=== PATIENT | male | born 1960 | race Caucasian/White ===

== ENCOUNTER 2025-01-28 04:49 | Inpatient (IN) | payer MEDICAID ==
[~2025-01-28] VITALS: Ht 167.6 cm; Wt 88.9 kg
[2025-01-28 04:58] VITALS: O2SAT 98
[2025-01-28 05:34] LABS: BASOPHILS % 1.0 % (0.0-2.0); EOSINOPHILS % 0.9 % (0.0-5.0); HEMATOCRIT. 48.8 % (42.0-52.0); HEMOGLOBIN. 16.0 g/dL (14.0-18.0); LYMPHOCYTES % 21.3 % (20.0-50.0); MEAN PLATELET VOLUME 8.0 fl (7.4-10.4); MONOCYTES % 8.5 % (2.0-8.0); NEUTROPHILS % 68.3 % (40.0-76.0); PLATELET 186 x1000/uL (130-400); RED BLOOD CELL COUNT 5.29 mill/uL (4.7-6.1); RED CELL DISTRIBUTION WIDTH 13.9 % (11.6-14.6)
[2025-01-28 05:47] LABS: CREATININE 1.3 mg/dL (0.6-1.3)
[2025-01-28 05:48] LABS: UREA NITROGEN BLOOD 15 mg/dL (9-23)
[2025-01-28 05:49] LABS: ASPARTATE AMINOTRANSFERASE 26 IU/L (<34)
[2025-01-28 05:50] LABS: BILIRUBIN DIRECT 0.3 mg/dL (<=3.0); BILIRUBIN TOTAL 0.9 mg/dL (0.1-1.0); PROTEIN TOTAL 6.9 g/dL (6.0-8.3)
[2025-01-28] MEDS: MORPHINE SULFATE 4 MG/ML INJ (FOR IV/IM USE) IV ONE (06:35)
[2025-01-28 06:48] LABS: CLARITY URINE CLEAR (CLEAR); COLOR URINE YELLOW (YELLOW); GLUCOSE URINE 3+ (NEGATIVE); KETONES URINE NEGATIVE (NEGATIVE); LEUKOCYTE ESTERASE URINE NEGATIVE (NEGATIVE); NITRITE URINE NEGATIVE (NEGATIVE); OCCULT BLOOD URINE 2+ (NEGATIVE); PH URINE 5.0 (4.5-8.0); PROTEIN URINE 1+ (NEGATIVE); SPECIFIC GRAVITY URINE 1.016 (1.005-1.030); UROBILINOGEN URINE 0.2 E.U./dL (0.2-1.0)
[2025-01-28 07:15] LABS: BACTERIA URINE TRACE; SQUAMOUS EPITHELIAL CELL URINE RARE /lpf (RARE/1+); WBC URINE 0-2 /hpf (0-2)
[2025-01-28] MEDS ORDERED: MORPHINE SULFATE 2 MG/ML INJ (NOT FOR IM USE) IV PRN (09:00)
[2025-01-28] MEDS ORDERED: IPRATROPIUM/ALBUTEROL 0.5-3(2.5)MG/3ML NEB HHN PRN (09:00)
[2025-01-28] MEDS ORDERED: DOCUSATE SODIUM 100MG CAPSULE PO PRN (09:00)
[2025-01-28] MEDS ORDERED: MAGNESIUM/ALUMINUM HYDROXIDE/SIMETHICONE 30ML UDC PO PRN (09:00)
[2025-01-28] MEDS ORDERED: GUAIFENESIN 200MG/10ML SUGAR FREE UDC PO PRN (09:00)
[2025-01-28] MEDS ORDERED: DEXTROSE 50% WATER 50ML SYRINGE IV PRN (09:00)
[2025-01-28] MEDS ORDERED: ONDANSETRON HCL 4MG/2ML INJ IV PRN (09:00)
[2025-01-28] MEDS ORDERED: NALOXONE HCL 0.4MG/ML VIAL IV PRN (09:30)
[2025-01-28] MEDS: INSULIN LISPRO 100 UNITS/ML SUBCUT SCH (09:30)
[2025-01-28] MEDS: BLOOD SUGAR DIAGNOSTIC STRIP TEST SCH (09:30)
[2025-01-28] MEDS: LISINOPRIL 10MG TABLET PO SCH (09:52)
[2025-01-28] MEDS: MORPHINE SULFATE 4 MG/ML INJ (FOR IV/IM USE) IV PRN (09:52)
[2025-01-28 10:00] VITALS: BP 148/72; PULSE 64; RESP 16; TEMP 36.418
[2025-01-28 12:00] VITALS: BP 148/72; PULSE 64; RESP 16; TEMP 36.3; O2SAT 98
[2025-01-28] MEDS: DEXT 5%/LACTATED RINGERS 1,000 ML IV SCH (12:17)
[2025-01-28 12:32] LABS: LACTATE DEHYDROGENASE 343 IU/L (120-246)
[2025-01-28 20:00] VITALS: BP 178/87; PULSE 84; RESP 20; TEMP 36.5; O2SAT 96
[2025-01-28] MEDS: ATORVASTATIN CALCIUM 20MG TABLET PO SCH (21:02)
[2025-01-28] MEDS: CLONIDINE 0.1MG TABLET PO PRN (21:16)
[2025-01-29] VITALS: BP 138/96; PULSE 91; RESP 20; TEMP 36.8; O2SAT 95
[2025-01-29] MEDS: INSULIN LISPRO 100 UNITS/ML SUBCUT SCH ×2 (00:11→18:12)
[2025-01-29 04:00] VITALS: BP 122/92; PULSE 114; RESP 20; TEMP 37.7; O2SAT 93
[2025-01-29 06:16] LABS: CREATININE 1.6 mg/dL (0.6-1.3); TRIGLYCERIDE 73.0 mg/dL (0-150); UREA NITROGEN BLOOD 27.0 mg/dL (9-23)
[2025-01-29 06:17] LABS: HEMATOCRIT. 53.5 % (42.0-52.0); HEMOGLOBIN. 17.6 g/dL (14.0-18.0); LDL CHOLESTEROL 68.0 mg/dL (5-100); MEAN PLATELET VOLUME 8.5 fl (7.4-10.4); PLATELET 135 x1000/uL (130-400); RED BLOOD CELL COUNT 5.80 mill/uL (4.7-6.1); RED CELL DISTRIBUTION WIDTH 14.2 % (11.6-14.6)
[2025-01-29 06:18] LABS: T4 FREE 1.09 ng/dL (0.89-1.76)
[2025-01-29 08:00] VITALS: BP 130/99; PULSE 99; RESP 18; TEMP 36.4; O2SAT 99
[2025-01-29] MEDS: PANTOPRAZOLE SODIUM 40 MG/VIAL IV SCH (08:32)
[2025-01-29 09:52] LABS: BAND% 28.0 % (1.0-6.0); LYMPHOCYTES % MANUAL 11.0 % (20.0-50.0); MONOCYTES % MANUAL 7.0 % (2.0-8.0); NEUTROPHILS % MANUAL 54.0 % (45.0-75.0); PLATELET ESTIMATE NORMAL
[2025-01-29 12:00] VITALS: BP 132/92; PULSE 99; RESP 20; TEMP 36.5; O2SAT 96
[2025-01-29] MEDS: ENOXAPARIN 40MG/0.4ML SYR SUBCUT SCH (14:53)
[2025-01-29 16:00] VITALS: BP 132/100; PULSE 100; RESP 20; TEMP 37.5; O2SAT 98
[2025-01-29] MEDS ORDERED: CEFTRIAXONE 1GM/50ML 50 ML IV SCH (18:00)
[2025-01-29] MEDS: CEFTRIAXONE 1GM/50ML 50 ML IV SCH (18:11)
[2025-01-29] MEDS: METRONIDAZOLE 500 MG PREMIX 100 ML IV SCH (22:54)
[2025-01-29] MEDS: INSULIN GLARGINE 100 UNITS/ML SUBCUT SCH (22:55)
[2025-01-30] VITALS: BP 110/78; PULSE 107; RESP 18; TEMP 36.7; O2SAT 99
[2025-01-30 04:00] VITALS: BP 124/89; PULSE 101; RESP 16; TEMP 36.4; O2SAT 100
[2025-01-30 08:00] VITALS: BP 134/93; PULSE 96; RESP 18; TEMP 36.5; O2SAT 97
[2025-01-30] MEDS: LACTATED RINGERS 1,000 ML IV SCH (09:35)
[2025-01-30 11:58] LABS: HEMATOCRIT. 49.7 % (42.0-52.0); HEMOGLOBIN. 16.1 g/dL (14.0-18.0); MEAN PLATELET VOLUME 8.8 fl (7.4-10.4); PLATELET 118 x1000/uL (130-400); RED BLOOD CELL COUNT 5.34 mill/uL (4.7-6.1); RED CELL DISTRIBUTION WIDTH 14.6 % (11.6-14.6)
[2025-01-30 12:15] LABS: CREATININE 1.7 mg/dL (0.6-1.3)
[2025-01-30 12:16] LABS: UREA NITROGEN BLOOD 39 mg/dL (9-23)
[2025-01-30 12:17] LABS: ASPARTATE AMINOTRANSFERASE 83 IU/L (<34); BILIRUBIN DIRECT 0.7 mg/dL (<=3.0); PHOSPHORUS 2.7 mg/dL (2.5-4.9); PROTEIN TOTAL 5.9 g/dL (6.0-8.3)
[2025-01-30 12:18] LABS: BILIRUBIN TOTAL 2.1 mg/dL (0.1-1.0)
[2025-01-30 16:00] VITALS: BP 132/88; PULSE 107; RESP 17; TEMP 36.7; O2SAT 98
[2025-01-30] MEDS: INSULIN LISPRO 100 UNITS/ML SUBCUT SCH (19:21)
[2025-01-30 20:00] VITALS: BP 124/79; PULSE 102; RESP 19; TEMP 36.2; O2SAT 100
[2025-01-30 21:54] LABS: LYMPHOCYTES % MANUAL 7.0 % (20.0-50.0); MONOCYTES % MANUAL 6.0 % (2.0-8.0); NEUTROPHILS % MANUAL 87.0 % (45.0-75.0)
[2025-01-30 21:55] LABS: PLATELET ESTIMATE NORMAL
[2025-01-31] VITALS: BP 137/85; PULSE 99; RESP 20; TEMP 36.5; O2SAT 98
[2025-01-31 04:00] VITALS: BP 135/92; PULSE 102; RESP 18; TEMP 36.1; O2SAT 97
[2025-01-31 07:21] LABS: HEMATOCRIT. 43.5 % (42.0-52.0); HEMOGLOBIN. 14.5 g/dL (14.0-18.0); MEAN PLATELET VOLUME 9.0 fl (7.4-10.4); PLATELET 110 x1000/uL (130-400); RED BLOOD CELL COUNT 4.69 mill/uL (4.7-6.1); RED CELL DISTRIBUTION WIDTH 13.9 % (11.6-14.6)
[2025-01-31 07:22] LABS: CREATININE 1.3 mg/dL (0.6-1.3)
[2025-01-31 07:23] LABS: UREA NITROGEN BLOOD 31 mg/dL (9-23)
[2025-01-31 07:24] LABS: ASPARTATE AMINOTRANSFERASE 63 IU/L (<34)
[2025-01-31 07:25] LABS: BILIRUBIN DIRECT 1.0 mg/dL (<=3.0); BILIRUBIN TOTAL 2.7 mg/dL (0.1-1.0); PHOSPHORUS 2.2 mg/dL (2.5-4.9); PROTEIN TOTAL 5.8 g/dL (6.0-8.3)
[2025-01-31 08:00] VITALS: BP 135/96; PULSE 106; RESP 14; TEMP 36.6; O2SAT 96
[2025-01-31] MEDS: AMLODIPINE 5MG TABLET PO SCH (08:51)
[2025-01-31] MEDS: INSULIN LISPRO 100 UNITS/ML SUBCUT SCH (11:51)
[2025-01-31] MEDS: SODIUM PHOSPHATE 20 MMOL in DEXT 5% WATER 243.3333 ML IV SCH (11:53)
[2025-01-31 11:54] LABS: BAND% 14.0 % (1.0-6.0); LYMPHOCYTES % MANUAL 12.0 % (20.0-50.0); MONOCYTES % MANUAL 5.0 % (2.0-8.0); NEUTROPHILS % MANUAL 69.0 % (45.0-75.0); PLATELET ESTIMATE SLIGHTLY DECREASED
[2025-01-31 12:00] VITALS: BP 123/77; PULSE 92; RESP 18; TEMP 37.5; O2SAT 99
[2025-01-31] MEDS: PIPERACILLIN/TAZO 3.375G/50ML 50 ML IV SCH (14:00)
[2025-01-31 16:00] VITALS: BP 124/79; PULSE 89; RESP 15; TEMP 36.6; O2SAT 92
[2025-01-31 17:50] LABS: BG BASE EXCESS -0.6 mmol/L (-2.0-3.0); BG CARBOXYHEMOGLOBIN 2.0 % (0.5-1.5); BG DEOXYHEMOGLOBIN 3.3 % (0.0-5.0); BG FRACTION INSPIRED OXYGEN 21; BG HCO3 ACT 20.8 mmol/L (21.0-28.0); BG METHEMOGLOBIN 0.3 % (0.5-1.5); BG OXYGEN SATURATION 96.6 % (94.0-98.0); BG OXYHEMOGLOBIN 94.4 % (94.0-98.0); BG PCO2 26.5 mmHg (35.0-48.0); BG PH 7.513 (7.350-7.450); BG PO2 74.8 mmHg (83.0-108.0); BG SAMPLE SITE RIGHT RADIAL; BG TOTAL HEMOGLOBIN 14.5 g/dL (13.5-17.5); BG VENT MODE ROOM AIR
[2025-01-31 20:00] VITALS: BP 125/71; PULSE 96; RESP 18; TEMP 37.5; O2SAT 100
[2025-01-31] MEDS: INSULIN GLARGINE 100 UNITS/ML SUBCUT SCH (21:41)
[2025-02-01] VITALS: BP 111/75; PULSE 92; RESP 18; TEMP 36.6; O2SAT 100
[2025-02-01 04:00] VITALS: BP 126/88; PULSE 104; RESP 18; TEMP 36.3; O2SAT 95
[2025-02-01 08:00] VITALS: PULSE 114; RESP 14; TEMP 36.9; O2SAT 91
[2025-02-01 08:20] LABS: UREA NITROGEN BLOOD 29 mg/dL (9-23)
[2025-02-01 08:21] LABS: CREATININE 1.0 mg/dL (0.6-1.3); HEMATOCRIT. 40.8 % (42.0-52.0); HEMOGLOBIN. 13.8 g/dL (14.0-18.0); MEAN PLATELET VOLUME 8.7 fl (7.4-10.4); PLATELET 135 x1000/uL (130-400); RED BLOOD CELL COUNT 4.47 mill/uL (4.7-6.1); RED CELL DISTRIBUTION WIDTH 14.0 % (11.6-14.6)
[2025-02-01 08:23] LABS: ASPARTATE AMINOTRANSFERASE 44 IU/L (<34); BILIRUBIN DIRECT 1.8 mg/dL (<=3.0); BILIRUBIN TOTAL 3.2 mg/dL (0.1-1.0); PHOSPHORUS 1.9 mg/dL (2.5-4.9)
[2025-02-01 08:24] LABS: PROTEIN TOTAL 5.1 g/dL (6.0-8.3)
[2025-02-01] MEDS: FAMOTIDINE 20MG/2ML VIAL IV SCH (08:45)
[2025-02-01 12:00] VITALS: PULSE 103; RESP 14; TEMP 36.7; O2SAT 91
[2025-02-01] MEDS: SODIUM PHOSPHATE 30 MMOL in DEXT 5% WATER 490 ML IV NR (12:02)
[2025-02-01 16:00] VITALS: PULSE 100; RESP 20; TEMP 36.4; O2SAT 92
[2025-02-01 20:00] VITALS: BP 121/76; PULSE 73; RESP 18; TEMP 36.3; O2SAT 94
[2025-02-02] VITALS: BP 119/84; PULSE 102; RESP 19; TEMP 36.3; O2SAT 93
[2025-02-02 04:00] VITALS: BP 131/88; PULSE 100; RESP 16; TEMP 36.2; O2SAT 96
[2025-02-02 04:52] LABS: BAND% 7.0 % (1.0-6.0); LYMPHOCYTES % MANUAL 10.0 % (20.0-50.0); MONOCYTES % MANUAL 10.0 % (2.0-8.0); NEUTROPHILS % MANUAL 73.0 % (45.0-75.0); PLATELET ESTIMATE NORMAL
[2025-02-02 07:21] LABS: HEMATOCRIT. 39.0 % (42.0-52.0); HEMOGLOBIN. 13.1 g/dL (14.0-18.0); MEAN PLATELET VOLUME 7.8 fl (7.4-10.4); PLATELET 150 x1000/uL (130-400); RED BLOOD CELL COUNT 4.28 mill/uL (4.7-6.1); RED CELL DISTRIBUTION WIDTH 13.9 % (11.6-14.6)
[2025-02-02 07:42] LABS: UREA NITROGEN BLOOD 23 mg/dL (9-23)
[2025-02-02 07:43] LABS: CREATININE 1.1 mg/dL (0.6-1.3)
[2025-02-02 07:45] LABS: ASPARTATE AMINOTRANSFERASE 37 IU/L (<34)
[2025-02-02 07:46] LABS: BILIRUBIN DIRECT 3.3 mg/dL (<=3.0); BILIRUBIN TOTAL 5.1 mg/dL (0.1-1.0); PHOSPHORUS 2.3 mg/dL (2.5-4.9); PROTEIN TOTAL 5.0 g/dL (6.0-8.3)
[2025-02-02 08:00] VITALS: BP 126/78; PULSE 95; RESP 18; TEMP 36.3; O2SAT 93
[2025-02-02] MEDS: POTASSIUM-SODIUM PHOSPHATE POWDER PACKET PO SCH (08:39)
[2025-02-02 12:00] VITALS: BP 126/80; PULSE 97; RESP 18; TEMP 36.2; O2SAT 93
[2025-02-02 13:51] LABS: BAND% 19.0 % (1.0-6.0); LYMPHOCYTES % MANUAL 14.0 % (20.0-50.0); METAMYELOCYTES % 1.0 % (0-0); MONOCYTES % MANUAL 3.0 % (2.0-8.0); NEUTROPHILS % MANUAL 63.0 % (45.0-75.0); PLATELET ESTIMATE NORMAL
[2025-02-02] MEDS: KETOROLAC 15MG/ML VIAL IV SCH (14:52)
[2025-02-02 16:00] VITALS: BP 125/75; PULSE 96; RESP 18; TEMP 36.3; O2SAT 93
[2025-02-02 20:00] VITALS: BP 116/70; PULSE 89; RESP 19; TEMP 36.1; O2SAT 99
[2025-02-03] VITALS: PULSE 90; RESP 18; TEMP 36.2; O2SAT 97
[2025-02-03 04:00] VITALS: BP 118/76; PULSE 91; RESP 19; TEMP 36.2; O2SAT 96
[2025-02-03 06:34] LABS: HEMATOCRIT. 36.7 % (42.0-52.0); HEMOGLOBIN. 12.4 g/dL (14.0-18.0); MEAN PLATELET VOLUME 8.0 fl (7.4-10.4); PLATELET 171 x1000/uL (130-400); RED BLOOD CELL COUNT 4.04 mill/uL (4.7-6.1); RED CELL DISTRIBUTION WIDTH 14.2 % (11.6-14.6)
[2025-02-03 07:05] LABS: CREATININE 1.1 mg/dL (0.6-1.3); UREA NITROGEN BLOOD 23 mg/dL (9-23)
[2025-02-03 07:06] LABS: ASPARTATE AMINOTRANSFERASE 42 IU/L (<34)
[2025-02-03 07:07] LABS: BILIRUBIN DIRECT 4.4 mg/dL (<=3.0); PHOSPHORUS 2.4 mg/dL (2.5-4.9)
[2025-02-03 07:08] LABS: PROTEIN TOTAL 4.6 g/dL (6.0-8.3)
[2025-02-03 08:00] VITALS: BP 124/73; PULSE 97; RESP 18; TEMP 36.3; O2SAT 94
[2025-02-03] MEDS: POTASSIUM-SODIUM PHOSPHATE POWDER PACKET PO SCH (08:33)
[2025-02-03 08:44] LABS: BILIRUBIN TOTAL 6.4 mg/dL (0.1-1.0)
[2025-02-03 11:47] LABS: BG BASE EXCESS -0.7 mmol/L (-2.0-3.0); BG CARBOXYHEMOGLOBIN 1.2 % (0.5-1.5); BG DEOXYHEMOGLOBIN 4.9 % (0.0-5.0); BG FRACTION INSPIRED OXYGEN 21; BG HCO3 ACT 21.2 mmol/L (21.0-28.0); BG METHEMOGLOBIN 0.1 % (0.5-1.5); BG OXYGEN SATURATION 95.0 % (94.0-98.0); BG OXYHEMOGLOBIN 93.8 % (94.0-98.0); BG PCO2 28.0 mmHg (35.0-48.0); BG PH 7.497 (7.350-7.450); BG PO2 67.3 mmHg (83.0-108.0); BG SAMPLE SITE RIGHT BRACHIAL; BG TOTAL HEMOGLOBIN 13.9 g/dL (13.5-17.5); BG VENT MODE ROOM AIR
[2025-02-03 12:00] VITALS: BP 121/81; PULSE 98; RESP 18; TEMP 36.2; O2SAT 97
[2025-02-03] MEDS: KETOROLAC 15MG/ML VIAL IV PRN (14:16)
[2025-02-03 16:00] VITALS: BP 125/80; PULSE 97; RESP 18; TEMP 36.2; O2SAT 95
[2025-02-03] MEDS ORDERED: THIAMINE HCL 100MG TABLET PO SCH (17:00)
[2025-02-03] MEDS: THIAMINE HCL 100 MG in SODIUM CHLORIDE 0.9% 49 ML IV NR (19:15)
[2025-02-03 20:00] VITALS: BP 109/69; PULSE 90; RESP 20; TEMP 36.2; O2SAT 95
[2025-02-04] VITALS: BP 139/83; PULSE 95; RESP 20; TEMP 36.7; O2SAT 96
[2025-02-04 06:31] LABS: BAND% 58.0 % (1.0-6.0); MONOCYTES % MANUAL 8.0 % (2.0-8.0); NEUTROPHILS % MANUAL 34.0 % (45.0-75.0); PLATELET ESTIMATE NORMAL
[2025-02-04 08:00] VITALS: BP 109/63; PULSE 95; RESP 20; TEMP 36.7; O2SAT 97
[2025-02-04] MEDS: THIAMINE HCL 100MG TABLET PO SCH (08:21)
[2025-02-04 12:00] VITALS: BP 126/78; PULSE 92; RESP 18; TEMP 36.7; O2SAT 97
[2025-02-04] MEDS ORDERED: IOHEXOL-300 100 ML BOTTLE ONE (12:28)
[2025-02-04 12:56] LABS: HEMATOCRIT. 37.5 % (42.0-52.0); HEMOGLOBIN. 12.6 g/dL (14.0-18.0); MEAN PLATELET VOLUME 8.2 fl (7.4-10.4); PLATELET 228 x1000/uL (130-400); RED BLOOD CELL COUNT 4.12 mill/uL (4.7-6.1); RED CELL DISTRIBUTION WIDTH 14.3 % (11.6-14.6)
[2025-02-04 13:05] LABS: CREATININE 1.0 mg/dL (0.6-1.3); UREA NITROGEN BLOOD 19 mg/dL (9-23)
[2025-02-04 13:06] LABS: LACTATE DEHYDROGENASE 732 IU/L (120-246)
[2025-02-04 13:07] LABS: ASPARTATE AMINOTRANSFERASE 70 IU/L (<34); BILIRUBIN DIRECT 6.4 mg/dL (<=3.0); BILIRUBIN TOTAL 8.3 mg/dL (0.1-1.0); PROTEIN TOTAL 5.0 g/dL (6.0-8.3)
[2025-02-04 16:00] VITALS: BP 132/81; PULSE 89; RESP 19; TEMP 36.6; O2SAT 98
[2025-02-04] MEDS ORDERED: POTASSIUM-SODIUM PHOSPHATE POWDER PACKET PO SCH (17:00)
[2025-02-04 18:30] LABS: LYMPHOCYTES % MANUAL 2.0 % (20.0-50.0); MONOCYTES % MANUAL 4.0 % (2.0-8.0); NEUTROPHILS % MANUAL 94.0 % (45.0-75.0); PLATELET ESTIMATE NORMAL
[2025-02-04 20:00] VITALS: BP 118/74; PULSE 93; RESP 18; TEMP 36.4; O2SAT 98
[2025-02-04 20:33] LABS: HEMATOCRIT. 36.9 % (42.0-52.0); HEMOGLOBIN. 12.2 g/dL (14.0-18.0); MEAN PLATELET VOLUME 8.0 fl (7.4-10.4); PLATELET 251 x1000/uL (130-400); RED BLOOD CELL COUNT 4.06 mill/uL (4.7-6.1); RED CELL DISTRIBUTION WIDTH 14.4 % (11.6-14.6)
[2025-02-04 20:46] LABS: CREATININE 1.0 mg/dL (0.6-1.3); UREA NITROGEN BLOOD 16 mg/dL (9-23)
[2025-02-04 20:48] LABS: ASPARTATE AMINOTRANSFERASE 76 IU/L (<34); BILIRUBIN TOTAL 8.7 mg/dL (0.1-1.0); PROTEIN TOTAL 5.0 g/dL (6.0-8.3)
[2025-02-04 20:58] LABS: LYMPHOCYTES % MANUAL 4.0 % (20.0-50.0); MONOCYTES % MANUAL 6.0 % (2.0-8.0); NEUTROPHILS % MANUAL 90.0 % (45.0-75.0); PLATELET ESTIMATE NORMAL
[2025-02-04 21:17] LABS: INR 1.2
[2025-02-05] VITALS: BP 123/88; PULSE 86; RESP 19; TEMP 38.7; O2SAT 96
[2025-02-05] MEDS: ACETAMINOPHEN 325MG TABLET PO PRN (01:47)
[2025-02-05 04:00] VITALS: BP 123/88; PULSE 86; RESP 19; TEMP 36.5; O2SAT 96
[2025-02-05 07:32] LABS: INR 1.2
[2025-02-05 07:41] LABS: HEMATOCRIT. 35.0 % (42.0-52.0); HEMOGLOBIN. 11.9 g/dL (14.0-18.0); MEAN PLATELET VOLUME 7.5 fl (7.4-10.4); PLATELET 237 x1000/uL (130-400); RED BLOOD CELL COUNT 3.85 mill/uL (4.7-6.1); RED CELL DISTRIBUTION WIDTH 14.6 % (11.6-14.6)
[2025-02-05 07:47] LABS: CREATININE 0.9 mg/dL (0.6-1.3)
[2025-02-05 07:48] LABS: UREA NITROGEN BLOOD 14 mg/dL (9-23)
[2025-02-05 07:49] LABS: ASPARTATE AMINOTRANSFERASE 76 IU/L (<34); LACTATE DEHYDROGENASE 600 IU/L (120-246)
[2025-02-05 07:50] LABS: BILIRUBIN TOTAL 8.4 mg/dL (0.1-1.0); PHOSPHORUS 3.0 mg/dL (2.5-4.9); PROTEIN TOTAL 4.6 g/dL (6.0-8.3)
[2025-02-05 08:00] VITALS: BP 117/71; PULSE 87; RESP 18; TEMP 36; O2SAT 97
[2025-02-05] MEDS: KCL 20MEQ/100ML PREMIX 100 ML IV SCH (09:43)
[2025-02-05 12:00] VITALS: BP 123/72; PULSE 89; RESP 18; TEMP 36.5; O2SAT 98
[2025-02-05] MEDS: DEXT 5%/0.9% NACL 1,000 ML IV SCH (14:56)
[2025-02-05 16:00] VITALS: BP 121/73; PULSE 100; RESP 18; TEMP 36.6; O2SAT 95
[2025-02-05 20:00] VITALS: BP 113/62; PULSE 102; RESP 18; TEMP 36.2; O2SAT 94
[2025-02-06] VITALS: BP 119/74; PULSE 100; RESP 16; TEMP 36.6; O2SAT 96
[2025-02-06 04:00] VITALS: BP 116/74; PULSE 98; RESP 18; TEMP 36.7; O2SAT 97
[2025-02-06] MEDS: DEXTROSE 50% WATER 50ML SYRINGE IV PRN (05:13)
[2025-02-06 07:38] LABS: CREATININE 1.0 mg/dL (0.6-1.3); UREA NITROGEN BLOOD 14 mg/dL (9-23)
[2025-02-06 07:40] LABS: ASPARTATE AMINOTRANSFERASE 88 IU/L (<34); BILIRUBIN TOTAL 8.6 mg/dL (0.1-1.0); PHOSPHORUS 3.1 mg/dL (2.5-4.9)
[2025-02-06 07:41] LABS: PROTEIN TOTAL 5.1 g/dL (6.0-8.3)
[2025-02-06 07:43] LABS: HEMATOCRIT. 37.4 % (42.0-52.0); HEMOGLOBIN. 12.3 g/dL (14.0-18.0); MEAN PLATELET VOLUME 7.8 fl (7.4-10.4); PLATELET 320 x1000/uL (130-400); RED BLOOD CELL COUNT 4.01 mill/uL (4.7-6.1); RED CELL DISTRIBUTION WIDTH 14.7 % (11.6-14.6)
[2025-02-06 08:00] VITALS: BP 123/75; PULSE 87; RESP 17; TEMP 36.8; O2SAT 98
[2025-02-06 08:04] LABS: INR 1.1
[2025-02-06 09:50] LABS: HEMATOCRIT. 37.8 % (42.0-52.0); HEMOGLOBIN. 12.5 g/dL (14.0-18.0); MEAN PLATELET VOLUME 7.9 fl (7.4-10.4); PLATELET 343 x1000/uL (130-400); RED BLOOD CELL COUNT 4.12 mill/uL (4.7-6.1); RED CELL DISTRIBUTION WIDTH 14.6 % (11.6-14.6)
[2025-02-06 12:00] VITALS: BP 122/68; PULSE 92; RESP 17; TEMP 36.7; O2SAT 92
[2025-02-06 14:00] LABS: BAND% 10.0 % (1.0-6.0); LYMPHOCYTES % MANUAL 3.0 % (20.0-50.0); MONOCYTES % MANUAL 7.0 % (2.0-8.0); NEUTROPHILS % MANUAL 80.0 % (45.0-75.0); PLATELET ESTIMATE NORMAL
[2025-02-06 15:51] LABS: CLARITY URINE CLOUDY (CLEAR); COLOR URINE ORANGE (YELLOW); GLUCOSE URINE TRACE (NEGATIVE); KETONES URINE TRACE (NEGATIVE); LEUKOCYTE ESTERASE URINE 1+ (NEGATIVE); NITRITE URINE POSITIVE (NEGATIVE); OCCULT BLOOD URINE 3+ (NEGATIVE); PH URINE 5.5 (4.5-8.0); PROTEIN URINE 2+ (NEGATIVE); SPECIFIC GRAVITY URINE 1.031 (1.005-1.030); UROBILINOGEN URINE 1.0 E.U./dL (0.2-1.0)
[2025-02-06 16:00] VITALS: BP 126/70; PULSE 89; RESP 16; TEMP 36.7; O2SAT 98
[2025-02-06 16:56] LABS: BACTERIA URINE 3+; SQUAMOUS EPITHELIAL CELL URINE FEW /lpf (RARE/1+)
[2025-02-06 16:57] LABS: RBC URINE 50-100 /hpf (0-2)
[2025-02-06 20:00] VITALS: BP 124/69; PULSE 82; RESP 18; TEMP 36.8; O2SAT 97
[2025-02-06 21:30] LABS: BAND% 4.0 % (1.0-6.0); LYMPHOCYTES % MANUAL 5.0 % (20.0-50.0); MONOCYTES % MANUAL 7.0 % (2.0-8.0); NEUTROPHILS % MANUAL 84.0 % (45.0-75.0); PLATELET ESTIMATE NORMAL
[2025-02-07] VITALS: BP 115/74; PULSE 95; RESP 17; TEMP 37.9; O2SAT 97
[2025-02-07 04:00] VITALS: BP 95/55; PULSE 94; RESP 18; TEMP 37.2; O2SAT 98
[2025-02-07] MEDS: MEROPENEM 1G/100ML 100 ML IV SCH (06:19)
[2025-02-07 07:27] LABS: HEMATOCRIT. 34.1 % (42.0-52.0); HEMOGLOBIN. 11.6 g/dL (14.0-18.0); MEAN PLATELET VOLUME 7.9 fl (7.4-10.4); PLATELET 311 x1000/uL (130-400); RED BLOOD CELL COUNT 3.74 mill/uL (4.7-6.1); RED CELL DISTRIBUTION WIDTH 14.5 % (11.6-14.6)
[2025-02-07 07:42] LABS: CREATININE 0.9 mg/dL (0.6-1.3); UREA NITROGEN BLOOD 11 mg/dL (9-23)
[2025-02-07 07:43] LABS: C REACTIVE PROTEIN HIGH SENS > 10.00 mg/l (<1.00)
[2025-02-07 07:44] LABS: ASPARTATE AMINOTRANSFERASE 107 IU/L (<34); BILIRUBIN DIRECT 6.7 mg/dL (<=3.0); BILIRUBIN TOTAL 9.2 mg/dL (0.1-1.0); PROTEIN TOTAL 4.8 g/dL (6.0-8.3)
[2025-02-07 08:00] VITALS: BP 119/76; PULSE 90; RESP 16; TEMP 36.5; O2SAT 96
[2025-02-07 08:14] LABS: HEPATITIS A AB IGM NEGATIVE (Negative)
[2025-02-07 08:15] LABS: HEPATITIS B CORE AB IGM NEGATIVE (Negative); HEPATITIS C AB NON REACTIVE (Neg) (Negative)
[2025-02-07 09:23] LABS: ERYTHROCYTE SEDIMENTATION RATE 28 mm/hr (0-20)
[2025-02-07 10:38] LABS: BAND% 11.0 % (1.0-6.0); LYMPHOCYTES % MANUAL 3.0 % (20.0-50.0); MONOCYTES % MANUAL 8.0 % (2.0-8.0); NEUTROPHILS % MANUAL 78.0 % (45.0-75.0)
[2025-02-07 10:39] LABS: PLATELET ESTIMATE NORMAL
[2025-02-07 12:00] VITALS: BP 120/78; PULSE 88; RESP 16; TEMP 36.6; O2SAT 96
[2025-02-07 20:00] VITALS: BP 118/75; PULSE 86; RESP 18; TEMP 37; O2SAT 95
[2025-02-07 20:34] LABS: BAND% 1.0 % (1.0-6.0); EOSINOPHILS % MANUAL 1.0 % (0.0-5.0); LYMPHOCYTES % MANUAL 3.0 % (20.0-50.0); MONOCYTES % MANUAL 1.0 % (2.0-8.0); NEUTROPHILS % MANUAL 94.0 % (45.0-75.0); PLATELET ESTIMATE NORMAL
[2025-02-08] VITALS: BP 120/73; PULSE 86; RESP 18; TEMP 37; O2SAT 96
[2025-02-08 04:00] VITALS: BP 112/74; PULSE 89; RESP 19; TEMP 36.8; O2SAT 95
[2025-02-08 08:00] VITALS: BP 121/75; PULSE 73; RESP 16; TEMP 36.3; O2SAT 96
[2025-02-08 08:17] LABS: ASPARTATE AMINOTRANSFERASE 123 IU/L (<34); BILIRUBIN DIRECT 7.2 mg/dL (<=3.0); BILIRUBIN TOTAL 9.1 mg/dL (0.1-1.0); PROTEIN TOTAL 4.4 g/dL (6.0-8.3)
[2025-02-08 16:00] VITALS: BP 122/78; PULSE 88; RESP 18; TEMP 36.2; O2SAT 96
[2025-02-08 20:00] VITALS: BP 117/75; PULSE 91; RESP 18; TEMP 36.6; O2SAT 95
[2025-02-09] VITALS: BP 134/78; PULSE 92; RESP 17; TEMP 36.2; O2SAT 95
[2025-02-09 04:00] VITALS: BP 98/62; PULSE 89; RESP 18; TEMP 36.3; O2SAT 95
[2025-02-09 07:41] LABS: ASPARTATE AMINOTRANSFERASE 117 IU/L (<34)
[2025-02-09 07:42] LABS: BILIRUBIN DIRECT 6.2 mg/dL (<=3.0); BILIRUBIN TOTAL 8.0 mg/dL (0.1-1.0); PROTEIN TOTAL 4.9 g/dL (6.0-8.3)
[2025-02-09 08:00] VITALS: BP 120/60; PULSE 90; RESP 18; TEMP 36.7; O2SAT 96
[2025-02-09 12:00] VITALS: BP 115/65; PULSE 95; RESP 18; TEMP 36.4; O2SAT 97
[2025-02-09 16:00] VITALS: BP 122/64; RESP 16; TEMP 36; O2SAT 97
[2025-02-09] MEDS: FLUCONAZOLE 100MG TABLET PO SCH (16:37)
[2025-02-09 20:00] VITALS: BP 109/72; PULSE 95; RESP 18; TEMP 36.4; O2SAT 99
[2025-02-10] VITALS: BP 105/70; PULSE 93; RESP 18; TEMP 36.4; O2SAT 100
[2025-02-10 04:00] VITALS: BP 111/70; PULSE 92; RESP 17; TEMP 36.4; O2SAT 100
[2025-02-10 06:49] LABS: HEMATOCRIT. 32.4 % (42.0-52.0); HEMOGLOBIN. 11.2 g/dL (14.0-18.0); MEAN PLATELET VOLUME 7.7 fl (7.4-10.4); PLATELET 356 x1000/uL (130-400); RED BLOOD CELL COUNT 3.57 mill/uL (4.7-6.1); RED CELL DISTRIBUTION WIDTH 14.8 % (11.6-14.6)
[2025-02-10 07:31] LABS: CREATININE 0.8 mg/dL (0.6-1.3); PROTEIN TOTAL 4.8 g/dL (6.0-8.3); UREA NITROGEN BLOOD 12 mg/dL (9-23)
[2025-02-10 07:33] LABS: ASPARTATE AMINOTRANSFERASE 107 IU/L (<34); BILIRUBIN DIRECT 5.0 mg/dL (<=3.0); BILIRUBIN TOTAL 6.5 mg/dL (0.1-1.0)
[2025-02-10 08:00] VITALS: BP 113/75; PULSE 90; RESP 16; TEMP 36.8; O2SAT 97
[2025-02-10 12:00] VITALS: BP 115/65; PULSE 92; RESP 18; TEMP 36.6; O2SAT 98
[2025-02-10] MEDS ORDERED: THIA100T72 PO (15:23)
[2025-02-10] MEDS ORDERED: LISI10TA26 PO (15:23)
[2025-02-10] MEDS ORDERED: FLUC100T42 PO (15:23)
[2025-02-10 16:00] VITALS: BP 115/70; PULSE 90; RESP 18; TEMP 37; O2SAT 98
[2025-02-10 16:22] VITALS: BP 116/78; PULSE 90; RESP 18; TEMP 98.4
[2025-02-10 21:08] LABS: LYMPHOCYTES % MANUAL 3.0 % (20.0-50.0); MONOCYTES % MANUAL 11.0 % (2.0-8.0); NEUTROPHILS % MANUAL 86.0 % (45.0-75.0); PLATELET ESTIMATE NORMAL
== END 2025-02-10 17:13 | disposition home or self-care (01) | DRG 720 ==
LOC: ER 05:00 → 7EST 08:14 → EDBEDREQ 08:18 → EDBEDREQTM 08:18 → ENRESERV 08:51
PROVIDERS: ADMIT Internal Medicine; ATTEND Internal Medicine
DX: A41.9 Sepsis, unspecified organism (principal); I81 Portal vein thrombosis; K85.11 Biliary acute pancreatitis with uninfected necrosis; I82.890 Acute embolism and thrombosis of other specified veins; J90 Pleural effusion, not elsewhere classified; E87.20 Acidosis, unspecified; N17.9 Acute kidney failure, unspecified; N39.0 Urinary tract infection, site not specified; I10 Essential (primary) hypertension; E11.65 Type 2 diabetes mellitus with hyperglycemia; K76.0 Fatty (change of) liver, not elsewhere classified; R74.8 Abnormal levels of other serum enzymes; E86.0 Dehydration; E83.39 Other disorders of phosphorus metabolism; K80.20 Calculus of gallbladder without cholecystitis without obstruction; E83.51 Hypocalcemia; E78.00 Pure hypercholesterolemia, unspecified; R18.8 Other ascites; I87.1 Compression of vein; M54.9 Dorsalgia, unspecified; F10.91 Alcohol use, unspecified, in remission; E87.6 Hypokalemia; Z79.4 Long term (current) use of insulin; Z79.899 Other long term (current) drug therapy
CPT/HCPCS: 36415; 36600; 74176; 74177; 74181; 76700; 76705; 80048; 80053; 80061; 80076; 81003; 82010; 82150; 82248; 82375; 82805; 82962; 82977; 83036; 83605; 83615; 83735; 84100; 84145; 84439; 84443; 85025; 85027; 85651; 86141; 86705; 86709; 87106; 87340; 93005; 93970; 96374; 99285; A4606; J0696; J1308; J1650; J1815; J1885; J2185; J2270; J2470; J2543; J3411; J3480; J3490; J7042; J7060; J7120; Q9967